=== PATIENT | male | born 2000 | race Two or more races ===

== ENCOUNTER → 2025-01-16 | Outpatient (REF) | payer OTHER ==
[2025-01-18 14:15] LABS: SEMEN APPEARANCE OPAQUE (OPAQUE); SEMEN VISCOSITY LIQUID (LIQUID); SEMEN VOLUME 3.2 ml (2.0-5.0); SPERM CONCENTRATION 78.9 M/ml (>=15.0); WBC CONCENTRATION <=1 M/ml (<=1 M/ml)
[2025-01-18 14:16] LABS: TOTAL PROGRESSIVE SPERM 99.2 M/Ejac.
== END ==
LOC: M LAB REF 14:04
PROVIDERS: ATTEND Obstetrics & Gynecology
DX: N46.9 Male infertility, unspecified (principal)

== ENCOUNTER 2025-06-18 20:40 | Emergency (ER) | payer OTHER ==
[~2025-06-18] VITALS: Ht 182.9 cm; Wt 97.5 kg
[2025-06-18] MEDS: ACETAMINOPHEN 325 MG TAB PO ONE (22:39)
[2025-06-18] MEDS: KETOROLAC 60 MG/2 ML VIAL IM ONE (22:39)
[2025-06-19] MEDS ORDERED: MEDR4PAK PO (00:15)
[2025-06-19] MEDS ORDERED: METH-1165 PO (00:15)
[2025-06-19 00:30] VITALS: BP 130/60; TEMP 98.7; O2SAT 98
== END 2025-06-19 00:35 | disposition home or self-care (01) ==
LOC: M ED 20:40
DX: M51.370 Other intervertebral disc degeneration, lumbosacral region with discogenic back pain only (principal); M51.26 Other intervertebral disc displacement, lumbar region; Z79.899 Other long term (current) drug therapy
CPT/HCPCS: 72131; 96372; 99283; J1885